=== PATIENT | male | born 1950 | race Caucasian/White ===

== ENCOUNTER 2020-02-12 16:55 | Emergency (ER) | payer OTHER, MEDICARE, SELFPAY ==
[2020-02-12 17:16] VITALS: BP 144/85; PULSE 72; RESP 18; TEMP 36.8; O2SAT 93; BMI 31.9
--- NOTE | 2020-02-12 18:55 | CTR_ITS ---
PROCEDURE INFORMATION: Exam: CT Abdomen And Pelvis With Contrast Exam date and time: 02/12/2020 8:19 PM Age: 69 years old Clinical indication: Abdominal pain; Prior surgery; Surgery type: Stents, gb, appy TECHNIQUE: Imaging protocol: Computed tomography of the abdomen and pelvis with intravenous contrast. Radiation optimization: All CT scans at this facility use at least one of these dose optimization techniques: automated exposure control; mA and/or kV adjustment per patient size (includes targeted exams where dose is matched to clinical indication); or iterative reconstruction. Contrast material: OMNI 300; Contrast volume: 95 ml; Contrast route: IV; COMPARISON: CT Abdomen/[place]vis o [id number] 06/14/2018 8:46 AM RADIATION DOSE METRICS: Total DLP: 1148.77 mGy-cm FINDINGS: Lungs: Scarring and/or atelectasis in the inferior segment of the lingula. Liver: Normal. No mass. Gallbladder and bile ducts: Stable cholecystectomy. Pancreas: Normal. No ductal dilation. Spleen: Normal. No splenomegaly. Adrenals: Normal. No mass. Kidneys and ureters: Stable focal cortical defects in the lower pole left kidney, representing sequela from previous infection or infarction. Stable multiple left renal simple cysts with the largest measuring > 1.0 cm. Stable renal hypodensity measuring < 1.0 cm , too small to further characterize. Stable left parapelvic cyst in the lower pole left kidney. No followup needed. Stomach and bowel: Unremarkable. No obstruction. No mucosal thickening. Appendix: No evidence of appendicitis. Intraperitoneal space: Unremarkable. No free air. No significant fluid collection. Vasculature: Calcification of the abdominal aorta and/or iliac arteries consistent with atherosclerotic vessel disease. One or more calcified pelvic phleboliths. Lymph nodes: Unremarkable. No enlarged lymph nodes. Bladder: Right inguinal hernia which now contains the right anterior urinary bladder which could conceivably create symptoms with some mild inflammation in the fat surrounding the herniated urinary bladder. Reproductive: Unremarkable as visualized. Bones/joints: Unremarkable. No acute fracture. Soft tissues: Stable left inguinal hernia containing fat. CT/CT abdomen pelvis w con* [id number] IMPRESSION: Right inguinal hernia which now contains the right anterior urinary bladder which could conceivably create symptoms with some mild inflammation in the fat surrounding the herniated urinary bladder. Radiation Dose CTDIVOL = (mGy): DLP = 1148.77 (mGy-cm)
[2020-02-12 19:07] LABS: Basophils # 0.1 10^3/uL (0.0-0.1); Basophils % 0.8 %; Eosinophils # 0.2 10^3/uL (0.0-0.8); Eosinophils % 2.2 %; Hematocrit 49.3 % (42.0-52.0); Hemoglobin 17.1 g/dL (11.7-16.6); Lymphocytes # 2.2 10^3/uL (0.8-4.8); Lymphocytes % 27.6 %; Mean Corpuscular HGB Conc 34.7 g/dL (30.0-36.0); Mean Corpuscular Hemoglobin 31.5 pg (28.0-34.0); Mean Platelet Volume 10.1 fL (7.4-10.4); Monocytes # 0.8 10^3/uL (0.2-0.9); Neutrophils # 4.6 10^3/uL (1.8-7.7); Neutrophils % 59.1 %; Nucleated Red Blood Cells % 0 %; Platelet Count 236 10^3/cmm (130-400); Red Blood Count 5.42 10^6/uL (4.1-5.3); Red Cell Distribution Width 13.4 % (12.1-15.1); White Blood Count 7.8 10^3/uL (4.0-10.0)
--- NOTE | 2020-02-12 19:19 | ED_ITS ---
HPI - Abdominal Pain General: Chief Complaint: Abdominal Pain Stated Complaint: abdominal pain and distention Time Seen by Provider: 02/12/20 18:48 History of Present Illness: HPI narrative: Rocael is a nice 69-year-old male who comes in complaining of abdominal pain. He states he has had left upper quadrant and left lower quadrant abdominal pain since Sunday. He states the pain is been constant but waxes and wanes in intensity. It is worse when he gets up and moves. He denies any nausea or vomiting, fevers or chills, dysuria or urinary frequency/urgency, he denies chest pain and shortness of breath and he denies any diarrhea or constipation. He is not had anything similar to this in the past. Patient's not been around anybody that is been ill. He states that nothing really seems to make it worse other than getting up and moving but laying down and resting does help make it better. Associated Symptoms: Denies chills, coffee ground emesis, constipation, GI cramping, diarrhea, dysuria, fever(s), heartburn, hematochezia, hematuria, hematemesis, melena, nausea, syncope and vomiting Review of Systems Const: Denies: fever(s), chills, body aches, fatigue, malaise or diaphoresis Eyes: Denies: change in vision, blurry vision, blind spots or photophobia ENMT: Denies: throat pain, odynophagia, hoarseness, swelling of lips/tongue, ear or mastoid pain, ear discharge, change in hearing or nasal discharge Card: Denies: chest pain, palpitations, irregular heart rhythm, edema, lightheadedness, syncope, pre-syncope, dyspnea on exertion or orthopnea Resp: Denies: dyspnea, productive cough, non-productive cough, wheezing, hemoptysis or chest congestion GI: Reports: abdominal pain; Denies: nausea, vomiting, hematemesis, coffee ground emesis, heartburn, diarrhea, constipation, GI cramping, hematochezia or melena : Denies: flank pain, dysuria, urinary frequency, urinary urgency or hematuria Musc: Denies: neck pain, back pain, extremity pain, extremity swelling, joint pain, joint swelling, joint redness, joint warmth or joint stiffness Skin/Breast: Denies: rash, pruritus, erythema, skin tenderness or jaundice Neuro: Denies: headache(s), numbness in extremities, weakness in extremities, sensory changes, lack of coordination, difficulty walking, dizziness, vertigo, confusion or Slurred speech present Chip/Lymph: Denies: easy bruising, easy bleeding, petechiae, purpura or enlarged lymph nodes All/Imm: Denies: urticaria, throat swelling, tongue swelling, facial swelling or acute wheezing PFSH ED PFSH: Medical History Coronary artery disease Hypertension Surgical History H/O cardiac catheterization S/P appendectomy S/P cholecystectomy Social History Smoking and tobacco status: never smoked Physical Exam Const: COMMON NORMALS: no acute distress, patient oriented x3, no limitations, healthy appearing and well nourished GENERAL APPEARANCE: cooperative, well kempt and well developed HENMT: COMMON NORMALS: normocephalic, atraumatic, hearing grossly normal bilaterally, external ears normal, EAC's normal, Normal external nose present and moist oral mucous membranes HEAD & SCALP: normocephalic and atraumatic NOSE: Normal external nose present and Normal nares present EXTERNAL EAR: Yes external ears normal EXTERNAL AUDITORY CANAL: EAC's normal MOUTH: Normal oral and palatal mucosa present, lip normal and tongue normal Eye: COMMON NORMALS: Equal, round and reactive pupils present, EOMs intact bilaterally, conjunctivae normal and no scleral icterus GENERAL EYE: appearance normal, both eyes and all related structures ALIGNMENT: Yes alignment normal PERIORBITAL: periorbital findings normal EYELID: eyelids normal CONJUNCTIVA: Yes conjunctivae normal SCLERA: sclerae normal PUPIL: Yes Equal, round and reactive pupils present Neck/C-Spine: COMMON NORMALS: full ROM, no lymphadenopathy, supple, no meningeal signs and no JVD GENERAL: Yes normal visual inspection and Yes trachea midline Chest: COMMONS NORMALS: normal inspection of the chest and normal palpation of entire chest wall Resp: COMMON NORMALS: normal respiratory effort, No retractions, No use of accessory muscles and clear to auscultation bilaterally EFFORT & INSPECTION: Yes able to speak in complete sentences and Yes symmetric chest movement AUSCULTATION: clear to auscultation bilaterally, no crackles, no rales, no r honchi and no wheezes Cardio: COMMON NORMALS: no JVD, regular rate, regular rhythm, S1 normal heart sound present, S2 normal heart sound present, No gallops present (Cardio), No clicks present (Cardio), No murmurs present (Cardio) and No rub (Cardio) RATE: regular rate RHYTHM: regular rhythm HEART SOUNDS: S1 normal heart sound present and S2 normal heart sound present GI: COMMON NORMALS: Soft to palpation and No hepatosplenomegaly present PALPATION: Yes Soft to palpation, Yes Tenderness to palpation present (GI) Details: LLQ and LUQ, No Guarding due to palpation present (GI), No Rigid due to palpation, Yes No hepatosplenomegaly present, No Hernia present, No Palpable mass present and No Pulsatile mass present : COMMON NORMALS: Yes no CVA tenderness BLADDER/KIDNEY EXAM: Yes no CVA tenderness Back/Pelvis: COMMON NORMALS: no CVA tenderness, thoracic and lumbar spine normal to inspection, no thoracic nor lumbar tenderness and thoraco-lumbar ROM normal Extremity: COMMON NORMALS: normal to inspection, full ROM, capillary refill normal, no joint enlargement, no clubbing, cyanosis or edema and no calf tenderness Neuro: COMMON NORMALS: patient oriented x3, CN's II-XII intact bilaterally, moves all extremities, no focal motor deficits and no sensory deficits noted MENINGEAL SIGNS: Yes no meningeal signs SPEECH: speech normal Psych: COMMON NORMALS: mental status grossly normal, Normal thought process present, cooperative, normal affect, speech normal and activity/motor behavior normal APPEARANCE: Yes well kempt SPEECH: Yes normal speech THOUGHT PROCESS: Normal thought process present Skin: COMMON NORMALS: no rashes or lesions noted, turgor normal, no jaundice, no petechiae and no mottling GENERAL SKIN EXAM: no rashes or lesions noted and turgor normal Course Vital Signs: Vital signs: Vital Signs Temperature 98.3 F 02/12/20 17:16 Pulse Rate 58 L 02/12/20 21:53 Respiratory Rate 16 02/12/20 21:53 Blood Pressure 141/77 02/12/20 21:53 Pulse Oximetry 95 02/12/20 21:53 MDM - Abdominal Pain MDM Narrative: Medical decision making narrative: Mr. Doip is a nice 69-year-old male who comes in complaining of left-sided abdominal pain for the past 5 days. He now relates that there is a tick bite in the area but I see only mild erythema present. There is no sign of peritonitis on his exam. His lab work and CT scan are unremarkable. I did review the right inguinal hernia with him, this was known by the patient, I reviewed the findings with Dr. Reynaldo gold and he states it needs follow-up with a surgeon but there is no acute urologic issue with this. Patient has no pain in this area. There is no sign of diverticulitis, abdominal aortic aneurysm or otherwise on CT. He agrees to return if his symptoms change or worsen. I reviewed with him discharge instructions and return precautions and he states he understands all this and will follow-up as directed or return if needed. Lab Data: Attestation: I reviewed the patient's lab results. Labs: Lab Results 02/12/20 02/12/20 02/12/20 Range/Units 18:55 19:26 19:32 WBC 7.8 (4.0-10.0) 10^3/ uL RBC 5.42 H (4.1-5.3) 10^6/u L Hgb 17.1 H (11.7-16.6) g/dL Hct 49.3 (42.0-52.0) % MCV 91.0 (80-94) fL MCH 31.5 (28.0-34.0) pg MCHC 34.7 (30.0-36.0) g/dL RDW 13.4 (12.1-15.1) % Plt Count 236 (130-400) 10^3/c mm MPV 10.1 (7.4-10.4) fL Neut % (Auto) 59.1 % Lymph % (Auto) 27.6 % [place] % (Auto) 10.0 % Eos % (Auto) 2.2 % Baso % (Auto) 0.8 % Neut # (Auto) 4.6 (1.8-7.7) 10^3/u L Lymph # (Auto) 2.2 (0.8-4.8) 10^3/u L [place] # (Auto) 0.8 (0.2-0.9) 10^3/u L Eos # (Auto) 0.2 (0.0-0.8) 10^3/u L Baso # (Auto) 0.1 (0.0-0.1) 10^3/u L Nucleated RBC % (a uto) 0 % Nucleated RBCs # 0.0 /100WBC Sodium 141 (136-145) mmol/L Potassium 3.5 (3.5-5.1) mmol/L Chloride 104 (98-107) mmol/L Carbon Dioxide 24 (22-29) mmol/L Anion Gap 16.5 (5-19) BUN 17 (8-23) mg/dL Creatinine 0.7 (0.7-1.2) mg/dL GFR Calculation 112.1 (90-130) mL/min Glucose 95 (65-115) mg/dL Calculated Osmolal ity 288 (285-295) mOsm/k g Calcium 9.0 (8.5-10.5) mg/dL Total Bilirubin 1.2 (0.15-1.2) mg/dL AST 23 (0-40) U/L ALT 19 (0-41) U/L Alkaline Phosphata se 62 (40-130) IU/L Total Protein 6.5 L (6.6-8.7) g/dL Albumin 3.9 (3.5-5.2) g/dL Globulin 2.6 (1.3-4.6) g/dL Lipase (13-60) U/L Urine Color Yellow (Yellow) Urine Appearance Clear (CLEAR) Urine pH 5 (5-7) Ur Specific Gravit y 1.025 (1.005-1.030) Urine Protein Neg (Negative) Urine Glucose (UA) Norm (Normal) Urine Ketones Negative (Negative) Urine Blood Trace H (Negative) Urine Nitrate Negative (Negative) Urine Bilirubin Neg (NEGATIVE) Urine Urobilinogen Norm (Negative) mg/dL Ur Leukocyte Keila ase Negative (Negative) Urine RBC 5-10 H (0-2) /hpf Urine WBC None (0-5) /hpf Ur Squamous Epith Cells 0-4 H (0-5) Ur Transition Epit h Cell None /hpf Ur Renal Epithelia l Cell N /hpf Urine Bacteria Trace (NONE) Urine Mucus 3+ 05/28/20 Range/Units 19:32 WBC (4.0-10.0) 10^3/ uL RBC (4.1-5.3) 10^6/u L Hgb (11.7-16.6) g/dL Hct (42.0-52.0) % MCV (80-94) fL MCH (28.0-34.0) pg MCHC (30.0-36.0) g/dL RDW (12.1-15.1) % Plt Count (130-400) 10^3/c mm MPV (7.4-10.4) fL Neut % (Auto) % Lymph % (Auto) % [place] % (Auto) % Eos % (Auto) % Baso % (Auto) % Neut # (Auto) (1.8-7.7) 10^3/u L Lymph # (Auto) (0.8-4.8) 10^3/u L [place] # (Auto) (0.2-0.9) 10^3/u L Eos # (Auto) (0.0-0.8) 10^3/u L Baso # (Auto) (0.0-0.1) 10^3/u L Nucleated RBC % (a uto) % Nucleated RBCs # /100WBC Sodium (136-145) mmol/L Potassium (3.5-5.1) mmol/L Chloride (98-107) mmol/L Carbon Dioxide (22-29) mmol/L Anion Gap (5-19) BUN (8-23) mg/dL Creatinine (0.7-1.2) mg/dL GFR Calculation (90-130) mL/min Glucose (65-115) mg/dL Calculated Osmolal ity (285-295) mOsm/k g Calcium (8.5-10.5) mg/dL Total Bilirubin (0.15-1.2) mg/dL AST (0-40) U/L ALT (0-41) U/L Alkaline Phosphata se (40-130) IU/L Total Protein (6.6-8.7) g/dL Albumin (3.5-5.2) g/dL Globulin (1.3-4.6) g/dL Lipase 23 (13-60) U/L Urine Color (Yellow) Urine Appearance (CLEAR) Urine pH (5-7) Ur Specific Gravit y (1.005-1.030) Urine Protein (Negative) Urine Glucose (UA) (Normal) Urine Ketones (Negative) Urine Blood (Negative) Urine Nitrate (Negative) Urine Bilirubin (NEGATIVE) Urine Urobilinogen (Negative) mg/dL Ur Leukocyte Keila ase (Negative) Urine RBC (0-2) /hpf Urine WBC (0-5) /hpf Ur Squamous Epith Cells (0-5) Ur Transition Epit h Cell /hpf Ur Renal Epithelia l Cell /hpf Urine Bacteria (NONE) Urine Mucus Imaging Data ^: CT Abd/Pel: Radiologist's impression: [address] [address] [address] Scan Report Signed Patient: Rocael Diop Unit #: [id number] : 1950 Age/Sex: 69 / M ADM Date: 02/12/20 Loc: ER Room/Bed: Attending Dr: Ordering Provider/Ordering MD: Wanda العلي DO Date of Service: 02/12/20 Procedure(s): CT abdomen pelvis w con* [id number] Accession Number(s): [id number] Report Number: [id number] PROCEDURE INFORMATION: Exam: CT Abdomen And Pelvis With Contrast Exam date and time: 02/12/2020 8:19 PM Age: 69 years old Clinical indication: Abdominal pain; Prior surgery; Surgery type: Stents, gb, appy TECHNIQUE: Imaging protocol: Computed tomography of the abdomen and pelvis with intravenous contrast. Radiation optimization: All CT scans at this facility use at least one of these dose optimization techniques: automated exposure control; mA and/or kV adjustment per patient size (includes targeted exams where dose is matched to clinical indication); or iterative reconstruction. Contrast material: OMNI 300; Contrast volume: 95 ml; Contrast route: IV; COMPARISON: CT Abdomen/Pelvis wwo [id number] 06/14/2018 8:46 AM RADIATION DOSE METRICS: Total DLP: 1148.77 mGy-cm FINDINGS: Lungs: Scarring and/or atelectasis in the inferior segment of the lingula. Liver: Normal. No mass. Gallbladder and bile ducts: Stable cholecystectomy. Pancreas: Normal. No ductal dilation. Spleen: Normal. No splenomegaly. Adrenals: Normal. No mass. Kidneys and ureters: Stable focal cortical defects in the lower pole left kidney, representing sequela from previous infection or infarction. Stable multiple left renal simple cysts with the largest measuring > 1.0 cm. Stable renal hypodensity measuring < 1.0 cm , too small to further characterize. Stable left parapelvic cyst in the lower pole left kidney. No followup needed. Stomach and bowel: Unremarkable. No obstruction. No mucosal thickening. Appendix: No evidence of appendicitis. Intraperitoneal space: Unremarkable. No free air. No significant fluid collection. Vasculature: Calcification of the abdominal aorta and/or iliac arteries consistent with atherosclerotic vessel disease. One or more calcified pelvic phleboliths. Lymph nodes: Unremarkable. No enlarged lymph nodes. Bladder: Right inguinal hernia which now contains the right anterior urinary bladder which could conceivably create symptoms with some mild inflammation in the fat surrounding the herniated urinary bladder. Reproductive: Unremarkable as visualized. Bones/joints: Unremarkable. No acute fracture. Soft tissues: Stable left inguinal hernia containing fat. CT/CT abdomen pelvis w con* [id number] IMPRESSION: Right inguinal hernia which now contains the right anterior urinary bladder which could conceivably create symptoms with some mild inflammation in the fat surrounding the herniated urinary bladder. Radiation Dose CTDIVOL = (mGy): DLP = 1148.77 (mGy-cm) Dictated By: Dominic Lazar MD Signed By: Dominic Lazar MD Signed Date/Time: 02/12/202054 DD/ 52 Discharge Plan Discharge Patient Disposition: Home, Self-Care Clinical Impression: Abdominal pain Qualifiers: Abdominal location: left lower quadrant Qualified Code(s): R10.32 - Left lower quadrant pain Tick bite of abdomen Qualifiers: Encounter type: initial encounter Qualified Code(s): S30.861A - Insect bite (nonvenomous) of abdominal wall, initial encounter Condition: Stable Prescriptions: New doxycycline hyclate 100 mg tablet 100 mg PO BID 14 Days Qty: 28 RF: 0 Zofran 4 mg tablet 4 mg PO QID PRN (Reason: nausea and vomiting) Qty: 20 RF: 0 No Action losartan 50 mg tablet 50 mg PO DAILY RF: 0 sotalol 80 mg tablet 80 mg PO BID RF: 0 magnesium 250 mg Tablet 250 mg PO DAILY RF: 0 pravastatin 20 mg tablet 20 mg PO BEDTIME RF: 0 hydrochlorothiazide 25 mg tablet 12.5 mg PO DAILY RF: 0 L-Lysine 500 mg Tablet 500 mg PO BID RF: 0 potassium gluconate 595 mg (99 mg) Tablet 595 mg PO DAILY RF: 0 Xarelto 20 mg tablet 20 mg PO DAILY RF: 0 Vitamin C 1 tab PO BID RF: 0 Discharge Orders: Discharge Order (Routine); Ordered 02/12/20 Ordered By: Wanda العلي Referrals: Khris Hyde [Primary Care Provider] - 1-3 days Discharge Diet: Advance as tolerated and Clear Liquid Discharge Activity: Increase activity as tolerated Patient Instructions: Tick Bite (ED), Abdominal Pain (ED) Activity Restrictions/Additional Instructions: Please return to the ER immediately for any of the signs or symptoms listed on your discharge instruction sheets, worsening/changing of your symptoms, you are not getting better as quickly as expected, or for ANY other cause or concerns. Follow a clear liquid diet and advance as tolerated. Be certain to follow-up with your doctor to be certain that your urinalysis clears. Return to the ER for fever, increased pain, vomiting, or for any other cause for concern. Discharge Date/Time: 02/12/20 21:54 Coding Level of Care Code ED Brewery Representative for Abhinav Fwd Exam Comprehensive
[2020-02-12 19:21] VITALS: BP 129/83; PULSE 62; RESP 18; O2SAT 95
[2020-02-12] MEDS: ondansetron 2 mg/ML SDV 2 mL 4 MG IVP ×2 (19:23→21:35)
[2020-02-12] MEDS: lactated ringers 1,000 ML 150 ML IV (19:24)
[2020-02-12 20:02] LABS: Urine Appearance Clear (CLEAR); Urine Color Yellow (Yellow); pH Urine 5 (5-7)
[2020-02-12 20:03] LABS: Add Urine Culture? No; Bacteria Urine TRACE; Bilirubin Urine Neg (NEGATIVE); Blood Urine Trace (Negative); Glucose Urine UA Norm (Normal); Ketones Urine Negative (Negative); Leukocyte Esterase Urine Negative (Negative); Mucus Urine 3+; Nitrate Urine Negative (Negative); Protein Urine Neg (Negative); Renal Epithelial Cells Urine N /hpf; Specific Gravity, Urine 1.025 (1.005-1.030); Squamous Epithelial Cell Urine 0-4 (0-5); Urobilinogen Urine Norm (Negative)
[2020-02-12 20:05] LABS: Alanine Aminotransferase 19 U/L (0-41); Albumin Level 3.9 g/dL (3.5-5.2); Alkaline Phosphatase 62 IU/L (40-130); Anion Gap 16.5 (5-19); Aspartate Amino Transferase 23 U/L (0-40); Blood Urea Nitrogen 17 mg/dL (8-23); Carbon Dioxide 24 mmol/L (22-29); Chloride 104 mmol/L (98-107); Globulin 2.6 g/dL (1.3-4.6); Glomerular Filtration Rate 112.1 mL/min (90-130); Glucose 95 mg/dL (65-115); Lipase 23 U/L (13-60); Osmolality Calculated 288 mOsm/kg (285-295); Potassium 3.5 mmol/L (3.5-5.1); Sodium 141 mmol/L (136-145); Total Bilirubin 1.2 mg/dL (0.15-1.2); Total Protein 6.5 g/dL (6.6-8.7)
[2020-02-12] MEDS: iohexol 300 mg/mL 100 mL Btl IV (20:33)
[2020-02-12 20:59] VITALS: BP 129/83; PULSE 88; RESP 16; O2SAT 96
[2020-02-12] MEDS: HYDROcodone-acetaminophen 5-325 mg Tablet 1 TAB PO (21:33)
[2020-02-12] MEDS: doxycycline 100 mg Tablet 200 MG PO (21:33)
[2020-02-12 21:53] VITALS: BP 141/77; PULSE 58; RESP 16; O2SAT 95
== END 2020-02-12 21:54 | disposition home or self-care (01) ==
PROVIDERS: Emergency Provider Emergency Medicine; PCP Internal Medicine
DX: R10.32 Left lower quadrant pain (principal); S30.861A Insect bite (nonvenomous) of abdominal wall, initial encounter; W57.XXXA Bitten or stung by nonvenomous insect and other nonvenomous arthropods, initial encounter; I25.10 Atherosclerotic heart disease of native coronary artery without angina pectoris; I10 Essential (primary) hypertension
CPT/HCPCS: 12345; 74177; 80053; 81001; 83690; 85025; 96365; 96366; 96375; 96376; 99283; J2405; Q9967

== ENCOUNTER 2020-08-18 17:15 | Emergency (ER) | payer OTHER, MEDICARE, SELFPAY ==
[2020-08-18 17:20] VITALS: PULSE 72; RESP 20; TEMP 36.5; O2SAT 96; BMI 30.4
--- NOTE | 2020-08-18 17:27 | XR_ITS ---
WS: [id number] Left shoulder, 3 views, 08/18/2020 Clinical Data: fall Comparison: None. Findings: No fractures or dislocations are seen. The AC joint is normal. The adjacent left clavicle, left scapu la and ribs are normal. The soft tissues are unremarkable. XR/XR shoulder LT min 2V* [id number] Impression: Negative left shoulder.
[2020-08-18] MEDS: TRAMadol 50 mg Tablet 100 MG PO (18:29)
--- NOTE | 2020-08-18 19:53 | ED_ITS ---
HPI - Extremity Problem General: Chief complaint: Extremity Injury, Upper Stated complaint: FALL FROM 8' LADDER, L SHOULDER INJURY Time Seen by Provider: 08/18/20 18:04 History of Present Illness: HPI Narrative: Patient fell off a ladder approximately from 7 foot line the left shoulder now complains about left shoulder pain this happened earlier in the day. Denies any other injuries patient does take daily blood thinner MD Complaint: joint pain Onset (ago): hour(s) Pain Consistency: constant Location: left and upper extremity Quality: aching Radiation: none Relieving factors: immobilization Exacerbating factors: range of motion Associated symptoms: Reports no associated symptoms; Deny chest pain, fever(s) or rash Review of Systems Const: Denies: fever(s), chills or body aches Eyes: Denies: change in vision or blurry vision ENMT: Denies: throat pain or nasal congestion Card: Denies: chest pain or dyspnea on exertion Resp: Denies: dyspnea, productive cough or non-productive cough GI: Denies: abdominal pain, nausea or vomiting : Denies: difficulty urinating Musc: Reports: joint pain (Right shoulder); Denies: extremity pain Skin/Breast: Denies: rash Neuro: Denies: headache(s) Psych: Denies: anxiety or depression Chip/Lymph: Denies: easy bruising PFSH ED PFSH: Medical History (Updated 08/18/20 @ 18:14 by VICTOR MANUEL Moreland) Coronary artery disease Hypertension Surgical History H/O cardiac catheterization S/P appendectomy S/P cholecystectomy Social History Smoking and tobacco status: never smoked Physical Exam Const: COMMON NORMALS: no acute distress, average body habitus and patient oriented x3 HENMT: COMMON NORMALS: normocephalic HEAD & SCALP: normal to inspection and normocephalic FACE & SINUS: normal facial exam Eye: COMMON NORMALS: conjunctivae normal GENERAL EYE: appearance normal, both eyes and all related structures CONJUNCTIVA: Yes conjunctivae normal Neck/C-Spine: COMMON NORMALS: no JVD Chest: COMMONS NORMALS: normal inspection of the chest Resp: COMMON NORMALS: normal respiratory effort and clear to auscultation bilaterally AUSCULTATION: clear to auscultation bilaterally Cardio: COMMON NORMALS: no JVD, regular rate and regular rhythm RATE: regular rate RHYTHM: regular rhythm GI: COMMON NORMALS: Normal to inspection, nondistended, normoactive bowel sounds present Extremity: COMMON NORMALS: normal to inspection RIGHT UPPER EXTREMITY: Yes shoulder joint (Tenderness with range of motion tenderness to the anterior aspect the shoul) Neuro: COMMON NORMALS: patient oriented x3 Course Vital Signs: Vital signs: Vital Signs Temperature 97.7 F 08/18/20 17:20 Pulse Rate 72 08/18/20 17:20 Respiratory Rate 20 H 08/18/20 17:20 Pulse Oximetry 96 08/18/20 17:20 MDM - Extremity (Nontraumatic) MDM Narrative: Medical decision making narrative: Reviewed x-ray with Dr. Anand patient follow-up family medical provider if no significant provement. Discharge Plan Discharge Patient Disposition: Home Clinical Impression: Contusion of left shoulder Qualifiers: Encounter type: initial encounter Qualified Code(s): S40.012A - Contusion of left shoulder, initial encounter Condition: Stable Prescriptions: New tramadol 50 mg tablet 50 mg PO TID PRN (Reason: pain) Qty: 14 RF: 0 No Action losartan 50 mg tablet 50 mg PO DAILY RF: 0 sotalol 80 mg tablet 80 mg PO BID RF: 0 magnesium 250 mg Tablet 250 mg PO DAILY RF: 0 pravastatin 20 mg tablet 20 mg PO BEDTIME RF: 0 hydrochlorothiazide 25 mg tablet 12.5 mg PO DAILY RF: 0 L-Lysine 500 mg Tablet 500 mg PO BID RF: 0 potassium gluconate 595 mg (99 mg) Tablet 595 mg PO DAILY RF: 0 Xarelto 20 mg tablet 20 mg PO DAILY RF: 0 Vitamin C 1 tab PO BID RF: 0 Zofran 4 mg tablet 4 mg PO QID PRN (Reason: nausea and vomiting) Qty: 20 RF: 0 Discharge Orders: Discharge ED (Routine); Ordered 08/18/20 Ordered By: Ramses Dunham Referrals: Khris Hyde [Primary Care Provider] - Discharge Diet: Usual diet Discharge Activity: Resume usual activity Patient Instructions: Contusion in Adults (ED) Activity Restrictions/Additional Instructions: follow up with primnary care provider oif no improvement, use med as directed, ice to area, weara sling as needed Coding Level of Care Code ED Aesthetician for Chg Fwd
== END 2020-08-18 18:33 | disposition home or self-care (01) ==
PROVIDERS: Emergency Provider Nurse Practitioner Family; PCP Internal Medicine
DX: S40.012A Contusion of left shoulder, initial encounter (principal); W11.XXXA Fall on and from ladder, initial encounter
CPT/HCPCS: 12345; 73030; 99281; 99283

== ENCOUNTER 2020-08-28 08:50 | Emergency (ER) | payer OTHER, MEDICARE, SELFPAY ==
[2020-08-28 08:53] VITALS: BP 198/111; PULSE 68; RESP 18; TEMP 36.3; O2SAT 96; BMI 30.4
--- NOTE | 2020-08-28 09:08 | USR_ITS ---
PROCEDURE INFORMATION: Exam: US Duplex Left Upper Extremity Veins, Limited Exam date and time: 08/28/2020 9:55 AM Age: 70 years old Clinical indication: Pain; Arm, upper; Left; Additional info: Possible dvt TECHNIQUE: Imaging protocol: Real-time Duplex ultrasound of the Left Upper Extremity with 2-D fleming scale, color Doppler flow and spectral waveform analysis with image documentation. Limited exam focused on the left upper extremity veins. COMPARISON: No relevant prior studies available. FINDINGS: Left deep veins: No deep venous thrombosis in the visualized left internal jugular, subclavian, axillary, or brachial veins. Left superficial veins: Visualized cephalic and basilic veins are patent without thrombus. Soft tissues: Unremarkable. US/[place] [id number] IMPRESSION: No deep venous thrombosis in the visualized left upper extremity.
--- NOTE | 2020-08-28 09:08 | XRR_ITS ---
PROCEDURE INFORMATION: Exam: XR Left Humerus Exam date and time: 08/28/2020 9:32 AM Age: 70 years old Clinical indication: Pain and injury or trauma; Fall; Blunt trauma (contusions or hematomas); Arm, upper; Left; Upper arm; Injury date: 08/18 TECHNIQUE: Imaging protocol: XR Left humerus Views: 2 or more views. COMPARISON: No relevant prior studies available. FINDINGS: Bones/joints: No acute bony injury or malalignment in the visualized left humerus. If localized injury in the shoulder or elbow is of clinical concern, dedicated radiographs would be recommended. Soft tissues: No radiopaque foreign body. XR/[place] [id number] IMPRESSION: No acute bony injury or malalignment in the visualized left humerus.
--- NOTE | 2020-08-28 09:08 | XRR_ITS ---
PROCEDURE INFORMATION: Exam: XR Left Shoulder Exam date and time: 08/28/2020 9:32 AM Age: 70 years old Clinical indication: Injury or trauma; Fall; Blunt trauma (contusions or hematomas); Shoulder; Left; Injury date: 08/18 TECHNIQUE: Imaging protocol: XR Left shoulder. Views: 2 or more views. COMPARISON: CR XR shoulder LT min 2V* [id number] 08/18/2020 5:49 PM FINDINGS: Bones/joints: No acute bony injury or malalignment in the left shoulder. Soft tissues: No radiopaque foreign body. XR/XR shoulder LT min 2V* [id number] IMPRESSION: No acute bony injury or malalignment in the left shoulder.
[2020-08-28 09:32] LABS: Basophils # 0.1 10^3/uL (0.0-0.1); Basophils % 1.2 %; Eosinophils # 0.4 10^3/uL (0.0-0.8); Eosinophils % 5.6 %; Hematocrit 44.9 % (42.0-52.0); Hemoglobin 15.3 g/dL (11.7-16.6); Lymphocytes # 1.7 10^3/uL (0.8-4.8); Lymphocytes % 24.7 %; Mean Corpuscular HGB Conc 34.1 g/dL (30.0-36.0); Mean Corpuscular Hemoglobin 31.1 pg (28.0-34.0); Mean Corpuscular Volume 91.3 fL (80-94); Mean Platelet Volume 10.2 fL (7.4-10.4); Monocytes # 0.5 10^3/uL (0.2-0.9); Monocytes % 7.2 %; Neutrophils # 4.18 10^3/uL (1.8-7.7); Nucleated Red Blood Cells % 0 %; Platelet Count 313 10^3/cmm (130-400); Red Blood Count 4.92 10^6/uL (4.1-5.3); Red Cell Distribution Width 13.2 % (12.1-15.1); White Blood Count 6.8 10^3/uL (4.0-10.0)
[2020-08-28 09:49] LABS: INR 1.71 (0.8-1.2); Partial Thromboplastin Time 37.9 SECONDS (23.9-36.7)
[2020-08-28 11:01] VITALS: BP 190/101; PULSE 64; RESP 18; O2SAT 96
--- NOTE | 2020-08-28 16:42 | W.ED.EXTPRO ---
HPI - Extremity Problem General: Chief complaint: Extremity Problem,Nontraumatic Stated complaint: Left Shoulder Pain/Bruising, Here recently Time Seen by Provider: 08/28/20 08:57 Source: patient Mode of arrival: ambulatory Limitations: no limitations History of Present Illness: HPI Narrative: 70 yo male patient presents to ER with worsening of bruising from a fall about a week ago. Pt states he is on blood thinners and noticed the bruising has gone from his shoulder and now going down his arm. Pt denies any numbness or tingling pt denies and loss of sensation. Pt does complain of pain but states pain does seem to be improving. pt states he was seen in er at time of fall and had negative xrays of shoulder and arm. pt denies fever. Pt denies chest pain or SOB. Associated symptoms: Deny chest pain, fever(s) or rash Review of Systems Const: Denies: fever(s), chills or body aches Eyes: Denies: change in vision or blurry vision ENMT: Denies: throat pain, mouth pain or dental pain Card: Denies: chest pain, palpitations, irregular heart rhythm, edema, swelling of feet/ankles, lightheadedness, syncope, pre-syncope, dyspnea on exertion, orthopnea, leg pain with exertion or acrocyanosis Resp: Denies: dyspnea, productive cough, non-productive cough, wheezing, stridor or pain on inspiration GI: Denies: abdominal pain, nausea, vomiting, diarrhea or constipation : Denies: flank pain, difficulty urinating, dysuria or urinary frequency Musc: Reports: extremity pain, extremity swelling and limited range of motion; Denies: neck pain, back pain, joint pain, joint swelling, joint redness, joint warmth, joint stiffness, muscle cramps, muscle weakness, decrease in muscle mass, loss of height or deformity Skin/Breast: Denies: rash, pruritus or erythema Neuro: Denies: headache(s), numbness in extremities, weakness in extremities, sensory changes, lack of coordination, difficulty walking, dizziness or vertigo Psych: Denies: suicidal ideation or homicidal ideation [facility] ED PFSH: Medical History Coronary artery disease Hypertension Surgical History H/O cardiac catheterization S/P appendectomy S/P cholecystectomy Social History Smoking and tobacco status: never smoked Physical Exam Const: COMMON NORMALS: no acute distress, average body habitus, patient oriented x3, no limitations, healthy appearing, alert and well nourished HENMT: COMMON NORMALS: normocephalic and atraumatic HEAD & SCALP: normocephalic and atraumatic Eye: COMMON NORMALS: Equal, round and reactive pupils present, EOMs intact bilaterally and conjunctivae normal CONJUNCTIVA: Yes conjunctivae normal PUPIL: Yes Equal, round and reactive pupils present Neck/C-Spine: COMMON NORMALS: full ROM, no lymphadenopathy, supple, no meningeal signs and no JVD Chest: COMMONS NORMALS: normal inspection of the chest and normal palpation of entire chest wall Resp: COMMON NORMALS: normal respiratory effort, No retractions, No use of accessory muscles and clear to auscultation bilaterally AUSCULTATION: clear to auscultation bilaterally Cardio: COMMON NORMALS: no JVD, regular rate and regular rhythm RATE: regular rate RHYTHM: regular rhythm GI: COMMON NORMALS: Normal to inspection, nondistended, normoactive bowel sounds present, Soft to palpation, non-tender, No hepatosplenomegaly present, no masses and no bruits PALPATION: Yes Soft to palpation and Yes No hepatosplenomegaly present : COMMON NORMALS: Yes no CVA tenderness BLADDER/KIDNEY EXAM: Yes no CVA tenderness Back/Pelvis: COMMON NORMALS: no CVA tenderness, thoracic and lumbar spine normal to inspection, no thoracic nor lumbar tenderness and thoraco-lumbar ROM normal Extremity: COMMON NORMALS: capillary refill normal, no joint enlargement, no clubbing, cyanosis or edema, no calf tenderness and no pedal edema LEFT UPPER EXTREMITY: Yes shoulder joint and Yes upper arm Neuro: COMMON NORMALS: patient oriented x3 SENSORIUM/ORIENTATION: Yes alert MENINGEAL SIGNS: Yes no meningeal signs Skin: NARRATIVE SKIN EXAM: bruising purple, yellow color as in images below SKIN IMAGES (MALE): 1. varying colors of bruising 2. varying colors of bruising Course Vital Signs: Vital signs: Vital Signs Temperature 97.3 F L 08/28/20 08:53 Pulse Rate 64 08/28/20 11:01 Respiratory Rate 18 08/28/20 11:01 Blood Pressure 190/101 08/28/20 11:01 Pulse Oximetry 96 08/28/20 11:01 MDM - Extremity (Nontraumatic) MDM Narrative: Medical decision making narrative: Pt is well appearing non toxic and in no acute distress. 70 yo male patient presents to ER with worsening of bruising from a fall about a week ago. Pt states he is on blood thinners and noticed the bruising has gone from his shoulder and now going down his arm. Pt denies any numbness or tingling pt denies and loss of sensation. Pt does complain of pain but states pain does seem to be improving. pt states he was seen in er at time of fall and had negative xrays of shoulder and arm. pt denies fever. Pt denies chest pain or SOB. xrays are negative for fractures or dislocation. I did order US to r/o DVT> Us was negative for any DVT> Pt is NVI distal to injury. I believe the bruising is secondary to blood thinner and that gravity has contributed to the spreading of the bruising. I do not feel any further testing is warranted I did talk with patient about return precautions such as chest pain or SOB to return to ER> I discussed home care and follow up with patient Differential Diagnosis: Extremity Problem Differential Diagnosis: Likely deep venous thrombosis of upper extremity (fracture, dislocation) Lab Data: Labs: Lab Results 08/28/20 08/28/20 Range/Units 09:19 09:19 WBC 6.8 (4.0-10.0) 10^3/ uL RBC 4.92 (4.1-5.3) 10^6/u L Hgb 15.3 (11.7-16.6) g/dL Hct 44.9 (42.0-52.0) % MCV 91.3 (80-94) fL MCH 31.1 (28.0-34.0) pg MCHC 34.1 (30.0-36.0) g/dL RDW 13.2 (12.1-15.1) % Plt Count 313 (130-400) 10^3/c mm MPV 10.2 (7.4-10.4) fL Neut % (Auto) 61.0 % Lymph % (Auto) 24.7 % [place] % (Auto) 7.2 % Eos % (Auto) 5.6 % Baso % (Auto) 1.2 % Neut # (Auto) 4.18 (1.8-7.7) 10^3/u L Lymph # (Auto) 1.7 (0.8-4.8) 10^3/u L [place] # (Auto) 0.5 (0.2-0.9) 10^3/u L Eos # (Auto) 0.4 (0.0-0.8) 10^3/u L Baso # (Auto) 0.1 (0.0-0.1) 10^3/u L Nucleated RBC % (a uto) 0 % Nucleated RBCs # 0.0 /100WBC PT 20.70 H (12.1-14.9) SECO NDS INR 1.71 H (0.8-1.2) APTT 37.9 H (23.9-36.7) SECO NDS Discharge Plan Discharge Patient Disposition: Home Clinical Impression: Bruising Condition: Stable Prescriptions: No Action tramadol 50 mg tablet 50 mg PO TID PRN (Reason: pain) Qty: 14 RF: 0 losartan 50 mg tablet 50 mg PO DAILY RF: 0 sotalol 80 mg tablet 80 mg PO BID RF: 0 magnesium 250 mg Tablet 250 mg PO DAILY RF: 0 pravastatin 20 mg tablet 20 mg PO BEDTIME RF: 0 hydrochlorothiazide 25 mg tablet 12.5 mg PO DAILY RF: 0 L-Lysine 500 mg Tablet 500 mg PO BID RF: 0 potassium gluconate 595 mg (99 mg) Tablet 595 mg PO DAILY RF: 0 Xarelto 20 mg tablet 20 mg PO DAILY RF: 0 Vitamin C 1 tab PO BID RF: 0 Zofran 4 mg tablet 4 mg PO QID PRN (Reason: nausea and vomiting) Qty: 20 RF: 0 Discharge Orders: Discharge ED (Routine); Ordered 08/28/20 Ordered By: Mary Maldonado Referrals: Khris Hyde [Primary Care Provider] - Discharge Diet: Advance as tolerated Discharge Activity: Resume usual activity Activity Restrictions/Additional Instructions: Pleae return to ER with any worsening of symptoms or chest pain or shortness of breath Please follow up with PCP Coding Level of Care Code ED Patching Machine Operator for Abhinav Marsh
== END 2020-08-28 11:01 | disposition home or self-care (01) ==
PROVIDERS: Emergency Provider Registered Nurse; PCP Internal Medicine
DX: S40.022A Contusion of left upper arm, initial encounter (principal); W19.XXXA Unspecified fall, initial encounter; I25.10 Atherosclerotic heart disease of native coronary artery without angina pectoris; I10 Essential (primary) hypertension; M79.602 Pain in left arm
CPT/HCPCS: 12345; 73030; 73060; 85025; 85610; 85730; 93971; 99281; 99283

== ENCOUNTER → 2023-01-23 12:46 | Outpatient (BNVA) | payer OTHER, SELFPAY | PROVIDERS: PCP Internal Medicine; Referring Provider Family Medicine; Visit Provider Orthopaedic Surgery | DX: M51.36 Other intervertebral disc degeneration, lumbar region (principal); M47.816 Spondylosis without myelopathy or radiculopathy, lumbar region | CPT/HCPCS: 72110; 99204 ==

== ENCOUNTER → 2023-02-08 14:29 | Outpatient (BNVA) | payer OTHER, SELFPAY | PROVIDERS: PCP Internal Medicine; Visit Provider Internal Medicine | DX: R07.9 Chest pain, unspecified (principal); I25.10 Atherosclerotic heart disease of native coronary artery without angina pectoris; I10 Essential (primary) hypertension; I48.91 Unspecified atrial fibrillation; Z79.899 Other long term (current) drug therapy; Z87.891 Personal history of nicotine dependence; Z79.01 Long term (current) use of anticoagulants; Z95.5 Presence of coronary angioplasty implant and graft; R94.31 Abnormal electrocardiogram [ECG] [EKG]; I27.20 Pulmonary hypertension, unspecified | CPT/HCPCS: 93005; 99204 ==

== ENCOUNTER 2023-07-10 21:43 | Emergency (ER) | payer OTHER, SELFPAY ==
--- NOTE | 2023-07-10 21:46 | ECG_ITS ---
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 Measurements Intervals [place] Rate: 66 P: -1 TN: 192 QRS: -14 QRSD: 90 T: 0 QT: 385 QTc: 405 Interpretive Statements SINUS RHYTHM Compared to ECG 02/08/2023 14:35:39 No significant changes Electronically Signed On 07-11-2023 8:02:09 CDT by Mk Doherty M.D. [email or web address] by [id number] f
[2023-07-10 21:50] VITALS: BP 199/121; PULSE 68; RESP 12; TEMP 36.4; O2SAT 98; BMI 28.8
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
[2023-07-10 22:24] LABS: Basophils # 0.1 10^3/uL (0.0-0.1); Basophils % 0.7 %; Eosinophils # 0.1 10^3/uL (0.0-0.8); Eosinophils % 1.6 %; Hematocrit 47.3 % (37-53); Lymphocytes # 1.7 10^3/uL (0.8-4.8); Lymphocytes % 24.3 %; Mean Corpuscular HGB Conc 34.7 g/dL (30-55); Mean Corpuscular Hemoglobin 31.3 pg (27-33); Mean Corpuscular Volume 90.3 fl (82-101); Mean Platelet Volume 9.7 fL (7.4-10.4); Monocytes # 0.5 10^3/uL (0.2-0.9); Monocytes % 6.9 %; Neutrophils # 4.69 10^3/uL (1.8-7.7); Neutrophils % 66.2 %; Nucleated Red Blood Cells % 0 %; Platelet Count 222 10^3/cmm (157-399); Red Blood Count 5.24 10^6/uL (3.85-5.65); Red Cell Distribution Width 13.2 % (12.1-15.1); White Blood Count 7.08 10^3/uL (3.29-11.43)
[2023-07-10 22:25] VITALS: BP 190/108; PULSE 66; RESP 19; O2SAT 94
[2023-07-10 22:43] LABS: Alanine Aminotransferase 20 U/L (0-41); Albumin Level 4.3 g/dL (3.5-5.2); Alkaline Phosphatase 73 U/L (40-130); Anion Gap 15.8 (5-19); Aspartate Amino Transferase 23 U/L (0-40); Blood Urea Nitrogen 16 mg/dL (8-23); Calcium 9.2 mg/dL (8.5-10.5); Carbon Dioxide 22 mmol/L (22-29); Chloride 106 mmol/L (98-107); Creatinine Clr Calc Pharmacy 89.1475; Globulin 2.7 g/dL (1.3-4.6); Glucose 112 mg/dL (65-115); Osmolality Calculated 292 mOsm/kg (285-295); Potassium 3.8 mmol/L (3.5-5.1); Sodium 140 mmol/L (136-145); Total Bilirubin 0.8 mg/dL (0.15-1.2)
[2023-07-10 22:44] LABS: Troponin(5th) Baseline 10 ng/L (0-15)
[2023-07-10 23:18] VITALS: BP 139/100; PULSE 67; RESP 18; TEMP 36.4; O2SAT 94
--- NOTE | 2023-07-12 11:00 | PC.SOCIAL ---
ORTHO RFS [facility] referral.
== END 2023-07-10 23:19 | disposition home or self-care (01) ==
PROVIDERS: Emergency Provider Nurse Practitioner Family
DX: R07.89 Other chest pain (principal); M25.512 Pain in left shoulder; I25.10 Atherosclerotic heart disease of native coronary artery without angina pectoris; I10 Essential (primary) hypertension; Z87.891 Personal history of nicotine dependence; Y04.2XXA Assault by strike against or bumped into by another person, initial encounter
CPT/HCPCS: 71101; 73030; 80053; 84484; 85025; 93005; 99285

== ENCOUNTER → 2023-08-06 10:54 | Outpatient (BNVA) | payer OTHER, SELFPAY | PROVIDERS: Visit Provider Specialist | DX: S49.92XA Unspecified injury of left shoulder and upper arm, initial encounter; M75.102 Unspecified rotator cuff tear or rupture of left shoulder, not specified as traumatic; M12.812 Other specific arthropathies, not elsewhere classified, left shoulder; W11.XXXA Fall on and from ladder, initial encounter | CPT/HCPCS: 20610; 73030; 99204; J1100; J2795; J3301 ==

== ENCOUNTER → 2023-10-02 14:11 | Outpatient (BNVA) | payer OTHER, SELFPAY | PROVIDERS: PCP Family Medicine; Visit Provider Internal Medicine | DX: I25.10 Atherosclerotic heart disease of native coronary artery without angina pectoris (principal); I10 Essential (primary) hypertension; I48.91 Unspecified atrial fibrillation; Z87.891 Personal history of nicotine dependence | CPT/HCPCS: 99214 ==

== ENCOUNTER → 2023-12-28 10:09 | Outpatient (BNVA) | payer OTHER, SELFPAY | PROVIDERS: PCP Family Medicine; Visit Provider Specialist | DX: M75.102 Unspecified rotator cuff tear or rupture of left shoulder, not specified as traumatic (principal); M12.812 Other specific arthropathies, not elsewhere classified, left shoulder | CPT/HCPCS: 20610; J1100; J2795; J3301 ==

== ENCOUNTER → 2024-04-18 10:54 | Outpatient (BNVA) | payer OTHER, SELFPAY | PROVIDERS: PCP Family Medicine; Visit Provider Specialist | DX: M75.102 Unspecified rotator cuff tear or rupture of left shoulder, not specified as traumatic (principal); M12.812 Other specific arthropathies, not elsewhere classified, left shoulder; Z71.89 Other specified counseling | CPT/HCPCS: 20610 ==

== ENCOUNTER 2024-06-17 12:27 | Emergency (ER) | payer OTHER, MEDICARE, SELFPAY ==
[2024-06-17] VITALS (7 sets, daily range): BP systolic 169–211; BP diastolic 98–112; PULSE 58–74; RESP 16–18; TEMP 36.7; O2SAT 92–98; BMI 31.1
--- NOTE | 2024-06-17 13:59 | CT_ITS ---
WS: [id number] CT ABDOMEN AND PELVIS WITH CONTRAST HISTORY: Left-sided flank pain. TECHNIQUE: Imaging performed of the abdomen and pelvis with IV contrast. Single phase imaging of the abdomen. Coronal and sagittal reformats are submitted. All CT scans at [facility] use at [facility] st one of these dose optimization techniques: automated exposure control; mA and/or kV adjustment per patient size (includes targeted exams where dose is matched to clinical indication); or iterative re construction. IV CONTRAST: Omnipaque 350; 100 mL IV. Oral contrast: No DLP: 843.33 mGy.cm COMPARISON: 02/12/2020 Lower thorax: Lung bases are clear. Heart is normal size. No hiatal hernia. Liver/biliary system: Normal size with no intrahepatic dilatation. Gallbladder: Prior cholecystectomy. Pancreas: Normal size pancreas and pancreatic duct. No adjacent inflammation. Spleen: Normal size spleen. No mass or infarct. Adrenal glands: Normal. Right kidney: No obstruction. Too small to characterize cortical hypodensities. Left kidney: No obstruction. Several cysts are present with the largest in the pelvis measuring 3.6 c m. Aorta: Atherosclerosis aorta. 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 Calcification in the celiac axis and SMA. Lymphadenopathy: None. Free fluid: None. GI tract: No GI tract obstruction. Prior appendectomy. No colitis. Mild sigmoid diverticular disease without acute diverticulitis. Abdominal wall: Fat containing umbilical hernia. Pelvis: Urinary bladder is well distended. Bilateral inguinal canals are patent containing fat. The u rinary bladder extends into the patent RIGHT inguinal canal as seen on the prior study. The extent of the bladder herniation is slightly progressed. No stones are identified within the bladder herniatio n. Bones: L5 anterolisthesis by 9 mm. Bilateral L5 pars defects. Acute nondisplaced LEFT 10th and 11th rib fractures. There are additional left-sided rib fractures wh ich are healed. CT/CT abdomen pelvis w con* [id number] IMPRESSION: 1. No renal obstruction or calcifications. 2. Mild sigmoid diverticulosis without acute diverticulitis. 3. Acute nondisplaced LEFT 10th and 11th rib fractures. 4. No free fluid or adenopathy. 5. Bilateral inguinal canals containing fat. The RIGHT inguinal canal also con tains the urinary bladder. Similar to the prior study from 2019.
--- NOTE | 2024-06-17 14:00 | W.ED.FALL ---
HPI - Fall General: Chief Complaint: Fall Stated Complaint: fell Sunday down flt stairs Time Seen by Provider: 06/17/24 13:48 Source: patient Mode of arrival: ambulatory Limitations: no limitations History of Present Illness: 74-year-old male states that he had fell down a few stairs on Sunday states he had hit his left flank on a stair he states been having increasing pain in his kidney area. He denies any other injuries from the fall denies hitting his head denies any neck pain he rates his flank pain a 7 out of 10 denies any blood in his urine. He is not on any blood thinners. Associated symptoms-after fall: Denies abdominal pain, chest pain, headache(s) or neck pain Related Data Home Medications Medication Instructions Recorded Confirmed Vitamin C 1 tab PO BID 02/12/20 06/17/24 magnesium 250 mg tablet 250 mg PO DAILY 02/12/20 06/17/24 potassium gluconate 595 mg (99 mg) 595 mg PO DAILY 02/12/20 06/17/24 tablet rivaroxaban 20 mg tablet (Xarelto) 20 mg PO DAILY 02/12/20 06/17/24 B-Complex 1 tab PO DAILY 02/08/23 06/17/24 cholecalciferol (vitamin D3) 50 50 mcg PO DAILY 02/08/23 06/17/24 mcg (2,000 unit) capsule losartan 100 mg tablet 100 mg PO DAILY 02/08/23 06/17/24 sildenafil 100 mg tablet See Rx Instructions .Route 02/08/23 06/17/24 .COMPLEX PRN erectile disfunction sotalol 80 mg tablet 40 mg PO BID 02/08/23 06/17/24 vit k2 1 tab PO DAILY 02/08/23 06/17/24 Allergies Allergy/AdvReac Type Severity Reaction Status Date / Time No Known Allergies Allergy Verified 04/18/24 10:59 Review of Systems Const: Denies: fever(s), chills, body aches or change in appetite ENMT: Denies: throat pain or dental pain Card: Denies: chest pain Resp: Denies: dyspnea GI: Denies: abdominal pain, nausea, vomiting or diarrhea : Reports: flank pain; Denies: dysuria Musc: Denies: neck pain or back pain Skin/Breast: Denies: rash Neuro: Denies: headache(s) PFSH ED PFSH: Medical History (Updated 06/17/24 @ 16:29 by Sharyn Serrano MD) Coronary artery disease Hypertension Surgical History H/O cardiac catheterization S/P cholecystectomy S/P appendectomy Social History Smoking and tobacco/nicotine status: former use of tobacco/nicotine Physical Exam Const: COMMON NORMALS: no acute distress, patient oriented x3 and healthy appearing HENMT: COMMON NORMALS: normocephalic and atraumatic HEAD & SCALP: normocephalic and atraumatic Eye: COMMON NORMALS: Equal, round and reactive pupils present and EOMs intact bilaterally PUPIL: Yes Equal, round and reactive pupils present Neck/C-Spine: COMMON NORMALS: full ROM and supple Chest: COMMONS NORMALS: normal inspection of the chest and normal palpation of entire chest wall Resp: COMMON NORMALS: normal respiratory effort, No retractions, No use of accessory muscles and clear to auscultation bilaterally AUSCULTATION: clear to auscultation bilaterally Cardio: COMMON NORMALS: regular rate, regular rhythm and No murmurs present (Cardio) RATE: regular rate RHYTHM: regular rhythm GI: COMMON NORMALS: Normal to inspection, nondistended, normoactive bowel sounds present, Soft to palpation and no masses PALPATION: Yes Soft to palpation OTHER: Tenderness along with contusion to left flank Extremity: COMMON NORMALS: normal to inspection and full ROM Neuro: COMMON NORMALS: patient oriented x3, moves all extremities and no focal motor deficits Psych: COMMON NORMALS: mental status grossly normal, Normal thought process present and cooperative THOUGHT PROCESS: Normal thought process present Skin: COMMON NORMALS: no rashes or lesions noted and no wounds GENERAL SKIN EXAM: no rashes or lesions noted Course Vital Signs: Vital signs: Vital Signs Temperature 98.1 F 06/17/24 12:31 Pulse Rate 61 06/17/24 16:00 Respiratory Rate 16 06/17/24 15:30 Blood Pressure 211/112 06/17/24 15:30 Pulse Oximetry 94 06/17/24 16:00 Oxygen Delivery Me thod Room Air 06/17/24 16:00 MDM - Fall Medical Decision Making Patient presents for left flank pain CT does show a 10-11 rib fracture likely causes pain kidney and intra-abdominal contents are all normal he is feeling improved. Has incentive spirometer at home informing needs to use it no signs any other major injuries he stable for discharge return if worsening Medical Records I reviewed the patient's medical records. Lab Data I reviewed the patient's lab results. 06/17/24 14:00 06/17/24 14:00 Radiology Impressions Abdomen/Pelvis CT 06/17/24 13:59 IMPRESSION: 1. No renal obstruction or calcifications. 2. Mild sigmoid diverticulosis without acute diverticulitis. 3. Acute nondisplaced LEFT 10th and 11th rib fractures. 4. No free fluid or adenopathy. 5. Bilateral inguinal canals containing fat. The RIGHT inguinal canal also contains the urinary bladder. Similar to the prior study from 2019. Laboratory Results WBC 7.80 10^3/uL (3.29-11.43) 06/17/24 14:00 RBC 5.64 10^6/uL (3.85-5.65) 06/17/24 14:00 Hgb 17.50 g/dL (11.27-16.99) H 06/17/24 14:00 Hct 52.1 % (37-53) 06/17/24 14:00 MCV 92.4 fl (82-101) 06/17/24 14:00 MCH 31.0 pg (27-33) 06/17/24 14:00 MCHC 33.6 g/dL (30-55) 06/17/24 14:00 RDW 13.1 % (12.1-15.1) 06/17/24 14:00 Plt Count 249 10^3/cmm (157-399) 06/17/24 14:00 MPV 9.7 fL (7.4-10.4) 06/17/24 14:00 Neut % (Auto) 62.8 % 06/17/24 14:00 Lymph % (Auto) 24.1 % 06/17/24 14:00 [place]utter % (Auto) 7.8 % 06/17/24 14:00 Eos % (Auto) 3.7 % 06/17/24 14:00 Baso % (Auto) 1.2 % 06/17/24 14:00 Neut # (Auto) 4.90 10^3/uL (1.8-7.7) 06/17/24 14:00 Lymph # (Auto) 1.9 10^3/uL (0.8-4.8) 06/17/24 14:00 [place]utter # (Auto) 0.6 10^3/uL (0.2-0.9) 06/17/24 14:00 Eos # (Auto) 0.3 10^3/uL (0.0-0.8) 06/17/24 14:00 Baso # (Auto) 0.1 10^3/uL (0.0-0.1) 06/17/24 14:00 Nucleated RBC % (auto) 0 % 06/17/24 14:00 Nucleated RBCs # 0.0 /100WBC 06/17/24 14:00 Sodium 138 mmol/L (136-145) 06/17/24 14:00 Potassium 4.4 mmol/L (3.5-5.1) 06/17/24 14:00 Chloride 105 mmol/L (98-107) 06/17/24 14:00 Carbon Dioxide 20 mmol/L (22-29) L 06/17/24 14:00 Anion Gap 17.4 (5-19) 06/17/24 14:00 BUN 18 mg/dL (8-23) 06/17/24 14:00 Creatinine 0.8 mg/dL (0.7-1.2) 06/17/24 14:00 GFR Calculation Not Reportable 06/17/24 14:00 Glucose 101 mg/dL (65-115) 06/17/24 14:00 Calculated Osmolality 288 mOsm/kg (285-295) 06/17/24 14:00 Calcium 8.6 mg/dL (8.5-10.5) 06/17/24 14:00 Total Bilirubin 0.6 mg/dL (0.15-1.2) 06/17/24 14:00 AST 28 U/L (0-40) 06/17/24 14:00 ALT 18 U/L (0-41) 06/17/24 14:00 Alkaline Phosphatase 78 U/L (40-130) 06/17/24 14:00 Total Protein 6.5 g/dL (6.6-8.7) L 06/17/24 14:00 Albumin 4.3 g/dL (3.5-5.2) 06/17/24 14:00 Globulin 2.2 g/dL (1.3-4.6) 06/17/24 14:00 All radiology interpretation(s) finalized by discharge Discharge Plan Discharge Patient Disposition: Home Clinical Impression: Fall Qualifiers: Encounter type: initial encounter Qualified Code(s): W19.XXXA - Unspecified fall, initial encounter Left rib fracture Qualifiers: Encounter type: initial encounter Rib fracture type: multiple ribs Fracture type: closed Qualified Code(s): S22.42XA - Multiple fractures of ribs, left side, initial encounter for closed fracture Condition: Stable Prescriptions: No Action sildenafil 100 mg tablet See Rx Instructions .ROUTE .COMPLEX PRN (Reason: erectile disfunction ) Rx Instructions: 100 mg orally as needed ;take once every other day as needed cholecalciferol (vitamin D3) 50 mcg (2,000 unit) capsule 50 mcg PO DAILY vit k2 1 tab PO DAILY B-Complex 1 tab PO DAILY sotalol 80 mg tablet 40 mg PO BID losartan 100 mg tablet 100 mg PO DAILY magnesium 250 mg Tablet 250 mg PO DAILY potassium gluconate 595 mg (99 mg) Tablet 595 mg PO DAILY Xarelto 20 mg tablet 20 mg PO DAILY Vitamin C 1 tab PO BID Discharge Orders: Discharge ED (Routine); Ordered 06/17/24 Ordered By: Sharyn Serrano Referrals: Emi Mills MD [Primary Care Provider] - 4-7 days Discharge Diet: Advance as tolerated Discharge Activity: Resume usual activity Patient Instructions: Rib Fracture (ED) Coding Level of Care Code ED Fraud Prevention Analyst for Abhinav Marsh
--- NOTE | 2024-06-17 14:08 | PC.PHAR ---
Patient [facility] for [facility]
[2024-06-17] MEDS: ondansetron 2 mg/ML SDV 2 mL 4 MG IVP (14:10)
[2024-06-17] MEDS: morphine 4 mg/mL SDV 1 mL IVP (14:11)
[2024-06-17 14:19] LABS: Basophils # 0.1 10^3/uL (0.0-0.1); Basophils % 1.2 %; Eosinophils # 0.3 10^3/uL (0.0-0.8); Eosinophils % 3.7 %; Hematocrit 52.1 % (37-53); Lymphocytes # 1.9 10^3/uL (0.8-4.8); Lymphocytes % 24.1 %; Mean Corpuscular HGB Conc 33.6 g/dL (30-55); Mean Corpuscular Volume 92.4 fl (82-101); Mean Platelet Volume 9.7 fL (7.4-10.4); Monocytes # 0.6 10^3/uL (0.2-0.9); Monocytes % 7.8 %; Neutrophils % 62.8 %; Nucleated Red Blood Cells % 0 %; Platelet Count 249 10^3/cmm (157-399); Red Blood Count 5.64 10^6/uL (3.85-5.65); Red Cell Distribution Width 13.1 % (12.1-15.1)
[2024-06-17 14:35] LABS: Alanine Aminotransferase 18 U/L (0-41); Albumin Level 4.3 g/dL (3.5-5.2); Alkaline Phosphatase 78 U/L (40-130); Blood Urea Nitrogen 18 mg/dL (8-23); Calcium 8.6 mg/dL (8.5-10.5); Carbon Dioxide 20 mmol/L (22-29); Chloride 105 mmol/L (98-107); Creatinine Clr Calc Pharmacy 91.0018; Globulin 2.2 g/dL (1.3-4.6); Glucose 101 mg/dL (65-115); Osmolality Calculated 288 mOsm/kg (285-295); Sodium 138 mmol/L (136-145); Total Bilirubin 0.6 mg/dL (0.15-1.2); Total Protein 6.5 g/dL (6.6-8.7)
[2024-06-17 14:36] LABS: Anion Gap 17.4 (5-19); Aspartate Amino Transferase 28 U/L (0-40); Potassium 4.4 mmol/L (3.5-5.1)
[2024-06-17] MEDS: iohexol 350 mg/mL 500 mL Btl (per mL) IV (15:16)
--- NOTE | 2024-06-17 15:45 | PC.NURSE ---
pt BP 211/112. pt in pain, states morphine didn't really help, pt states he does not want any more pain meds. dr. Serrano notified and aware.
--- NOTE | 2024-06-17 16:12 | XRR_ITS ---
PROCEDURE INFORMATION: Exam: XR Chest Exam date and time: 06/17/2024 4:16 PM Age: 74 years old Clinical indication: Injury or trauma; Fall; Blunt trauma (contusions or hematomas) TECHNIQUE: Imaging protocol: Radiologic exam of the chest. Views: 1 view. COMPARISON: CR XR ribs LT mn 3V w CXR1V [id number] 07/10/2023 10:01 PM FINDINGS: Lungs: Unremarkable. No consolidation. Pleural spaces: Unremarkable. No pleural effusion. No pneumothorax. Heart/Mediastinum: Unremarkable. No cardiomegaly. Vasculature: Tortuous thoracic aorta with atherosclerotic calcifications. Bones/joints: Unremarkable. XR/XR chest 1V portable [id number] IMPRESSION: No acute findings.
== END 2024-06-17 16:42 | disposition home or self-care (01) ==
PROVIDERS: Emergency Provider Emergency Medicine; PCP Family Medicine
DX: S22.42XA Multiple fractures of ribs, left side, initial encounter for closed fracture (principal); W10.9XXA Fall (on) (from) unspecified stairs and steps, initial encounter
CPT/HCPCS: 71045; 74177; 80053; 85025; 96374; 96375; 99285; J2270; J2405

== ENCOUNTER → 2024-07-31 11:24 | Outpatient (BNVA) | payer OTHER, SELFPAY | PROVIDERS: PCP Family Medicine; Visit Provider Nurse Practitioner Family | DX: I48.91 Unspecified atrial fibrillation (principal); I25.10 Atherosclerotic heart disease of native coronary artery without angina pectoris; I10 Essential (primary) hypertension; R00.1 Bradycardia, unspecified; Z87.891 Personal history of nicotine dependence | CPT/HCPCS: 93005; 99214 ==

== ENCOUNTER → 2024-08-01 10:20 | Outpatient (BNVA) | payer OTHER, SELFPAY | PROVIDERS: PCP Family Medicine; Visit Provider Specialist | DX: M75.102 Unspecified rotator cuff tear or rupture of left shoulder, not specified as traumatic; M12.812 Other specific arthropathies, not elsewhere classified, left shoulder; Z71.89 Other specified counseling | CPT/HCPCS: 20610; J1100; J2795; J3301 ==

== ENCOUNTER → 2024-11-07 09:36 | Outpatient (BNVA) | payer OTHER, SELFPAY | PROVIDERS: PCP Family Medicine; Visit Provider Specialist | DX: M75.102 Unspecified rotator cuff tear or rupture of left shoulder, not specified as traumatic (principal); M12.812 Other specific arthropathies, not elsewhere classified, left shoulder; Z71.89 Other specified counseling | CPT/HCPCS: 20610; J1100; J2795; J3301 ==

== ENCOUNTER 2024-11-10 12:27 | Emergency (ER) | payer OTHER, MEDICARE, SELFPAY ==
[2024-11-10 12:32] VITALS: BP 162/80; PULSE 57; TEMP 36.4; O2SAT 98; BMI 30.4
[2024-11-10 14:30] LABS: Basophils % 0.5 %; Eosinophils # 0.1 10^3/uL (0.0-0.8); Eosinophils % 0.8 %; Hematocrit 52.6 % (37-53); Lymphocytes # 1.9 10^3/uL (0.8-4.8); Lymphocytes % 21.8 %; Mean Corpuscular HGB Conc 33.3 g/dL (30-55); Mean Corpuscular Hemoglobin 30.8 pg (27-33); Mean Corpuscular Volume 92.6 fl (82-101); Mean Platelet Volume 9.9 fL (7.4-10.4); Monocytes # 0.6 10^3/uL (0.2-0.9); Monocytes % 6.7 %; Neutrophils # 6.12 10^3/uL (1.8-7.7); Neutrophils % 69.9 %; Nucleated Red Blood Cells % 0 %; Platelet Count 255 10^3/cmm (157-399); Red Blood Count 5.68 10^6/uL (3.85-5.65); Red Cell Distribution Width 13.9 % (12.1-15.1); White Blood Count 8.76 10^3/uL (3.29-11.43)
[2024-11-10 14:48] LABS: Alanine Aminotransferase 22 U/L (0-41); Albumin Level 4.2 g/dL (3.5-5.2); Alkaline Phosphatase 84 U/L (40-130); Anion Gap 14.2 (5-19); Aspartate Amino Transferase 20 U/L (0-40); Blood Urea Nitrogen 17 mg/dL (8-23); Calcium 9.6 mg/dL (8.5-10.5); Carbon Dioxide 27 mmol/L (22-29); Chloride 103 mmol/L (98-107); Creatinine Clr Calc Pharmacy 71.9573; Glucose 117 mg/dL (65-115); Osmolality Calculated 293 mOsm/kg (285-295); Potassium 4.2 mmol/L (3.5-5.1); Sodium 140 mmol/L (136-145); Total Bilirubin 0.7 mg/dL (0.15-1.2); Total Protein 7.2 g/dL (6.6-8.7)
--- NOTE | 2024-11-10 15:34 | W.ED.MALEGU ---
HPI - Male Genitourinary General: Chief complaint: Urogenital-Male Stated complaint: ([facility]) diarrhea, pain in groin Time Seen by Provider: 11/10/24 15:24 History of Present Illness: 73-year-old male presents to the emergency room with complaints of swelling and bulge in the right groin. He had a hernia in the past it is causing more discomfort. No vomiting. He has had some loose stools has been going on for some time denies hematochezia. Associated symptoms: Deny dysuria Related Data Home Medications ?Medication ?Instructions ?Recorded ?Confirmed Vitamin C 1 tab PO BID 02/12/20 11/10/24 magnesium 250 mg tablet 250 mg PO DAILY 02/12/20 11/10/24 potassium gluconate 595 mg (99 mg) 595 mg PO DAILY 02/12/20 11/10/24 tablet rivaroxaban 20 mg tablet (Xarelto) 20 mg PO DAILY 02/12/20 11/10/24 B-Complex 1 tab PO DAILY 02/08/23 11/10/24 cholecalciferol (vitamin D3) 50 50 mcg PO DAILY 02/08/23 11/10/24 mcg (2,000 unit) capsule losartan 100 mg tablet 100 mg PO DAILY 02/08/23 11/10/24 sildenafil 100 mg tablet See Rx Instructions .Route 02/08/23 11/10/24 .COMPLEX PRN erectile disfunction sotalol 80 mg tablet 40 mg PO BID 02/08/23 11/10/24 vit k2 1 tab PO DAILY 02/08/23 11/10/24 Allergies Allergy/AdvReac Type Severity Reaction Status Date / Time No Known Allergies Allergy Verified 11/10/24 12:35 Review of Systems Const: Denies: fever(s) or chills Card: Denies: chest pain Resp: Denies: dyspnea GI: Denies: abdominal pain : Denies: dysuria, urinary frequency or urinary urgency Musc: Denies: neck pain or back pain Skin/Breast: Denies: rash PFSH ED PFSH: Medical History (Updated 11/10/24 @ 17:51 by Claudy Bowman DO) Coronary artery disease Hypertension Surgical History H/O cardiac catheterization S/P cholecystectomy S/P appendectomy Social History Smoking and tobacco/nicotine status: former use of tobacco/nicotine Physical Exam Const: COMMON NORMALS: no acute distress GENERAL APPEARANCE: cooperative and comfortable ORIENTATION/CONSCIOUSNESS: Yes awake, Yes oriented to person, Yes oriented to place and Yes oriented to time HENMT: COMMON NORMALS: normocephalic, atraumatic and hearing grossly normal bilaterally HEAD & SCALP: normocephalic and atraumatic Resp: COMMON NORMALS: normal respiratory effort, No retractions, No use of accessory muscles and clear to auscultation bilaterally AUSCULTATION: clear to auscultation bilaterally Cardio: COMMON NORMALS: regular rate, regular rhythm and No murmurs present (Cardio) RATE: regular rate RHYTHM: regular rhythm GI: COMMON NORMALS: Soft to palpation and No hepatosplenomegaly present AUSCULTATION: Yes normoactive bowel sounds PALPATION: Yes Soft to palpation, No Tenderness to palpation present (GI), No Guarding due to palpation present (GI) and Yes No hepatosplenomegaly present OTHER: Palpable right inguinal hernia is reducible there is still some tissue in the inguinal canal but significantly improved. Extremity: COMMON NORMALS: normal to inspection, capillary refill normal, no clubbing, cyanosis or edema, no calf tenderness and no pedal edema Neuro: SENSORIUM/ORIENTATION: Yes oriented to person, Yes oriented to place and Yes oriented to time Skin: COMMON NORMALS: no rashes or lesions noted GENERAL SKIN EXAM: no rashes or lesions noted Course Vital Signs: Vital signs: Vital Signs Temperature 97.6 F 11/10/24 12:32 Pulse Rate 59 L 11/10/24 18:06 Respiratory Rate 18 11/10/24 17:51 Blood Pressure 161/93 11/10/24 18:06 Pulse Oximetry 98 11/10/24 18:06 Oxygen Delivery Me thod Room Air 11/10/24 17:51 MDM - Male Medical Decision Making CT shows very unusual herniation of the bladder like an extremely large diverticulum that extends deep into the inguinal canal defect. He is not strangulated no there is no bowel as the defect is kidney function is good is not causing obstruction will discharge home refer to urology Medical Records I reviewed the patient's medical records. Lab Data I reviewed the patient's lab results. 11/10/24 13:50 11/10/24 13:50 Radiology Impressions Abdomen/Pelvis CT 11/10/24 16:16 IMPRESSION: 1. Herniation of the urinary bladder into the right inguinal canal, the hernia also contains fat. There has been no significant interval change. Right hydrocele. 2. Interval increase in size of the 3.4 cm infrarenal abdominal aortic aneurysm which previously measured 3.1 cm. COMMENTS: Consistent with the [employer]'s Incidental Findings Committee white paper (J Am Xavier Radiol 2018): Any incidental renal lesion less than 1 cm or classified as too small to characterize, or any incidental cystic renal lesion characterized as simple-appearing, is likely benign. No follow-up imaging is recommended for these lesions per consensus recommendations based on imaging criteria. Laboratory Results WBC 8.76 10^3/uL (3.29-11.43) 11/10/24 13:50 RBC 5.68 10^6/uL (3.85-5.65) H 11/10/24 13:50 Hgb 17.50 g/dL (11.27-16.99) H 11/10/24 13:50 Hct 52.6 % (37-53) 11/10/24 13:50 MCV 92.6 fl (82-101) 11/10/24 13:50 MCH 30.8 pg (27-33) 11/10/24 13:50 MCHC 33.3 g/dL (30-55) 11/10/24 13:50 RDW 13.9 % (12.1-15.1) 11/10/24 13:50 Plt Count 255 10^3/cmm (157-399) 11/10/24 13:50 MPV 9.9 fL (7.4-10.4) 11/10/24 13:50 Neut % (Auto) 69.9 % 11/10/24 13:50 Lymph % (Auto) 21.8 % 11/10/24 13:50 Stewart % (Auto) 6.7 % 11/10/24 13:50 Eos % (Auto) 0.8 % 11/10/24 13:50 Baso % (Auto) 0.5 % 11/10/24 13:50 Neut # (Auto) 6.12 10^3/uL (1.8-7.7) 11/10/24 13:50 Lymph # (Auto) 1.9 10^3/uL (0.8-4.8) 11/10/24 13:50 Stewart # (Auto) 0.6 10^3/uL (0.2-0.9) 11/10/24 13:50 Eos # (Auto) 0.1 10^3/uL (0.0-0.8) 11/10/24 13:50 Baso # (Auto) 0.0 10^3/uL (0.0-0.1) 11/10/24 13:50 Nucleated RBC % (auto) 0 % 11/10/24 13:50 Nucleated RBCs # 0.0 /100WBC 11/10/24 13:50 Sodium 140 mmol/L (136-145) 11/10/24 13:50 Potassium 4.2 mmol/L (3.5-5.1) 11/10/24 13:50 Chloride 103 mmol/L (98-107) 11/10/24 13:50 Carbon Dioxide 27 mmol/L (22-29) 11/10/24 13:50 Anion Gap 14.2 (5-19) 11/10/24 13:50 BUN 17 mg/dL (8-23) 11/10/24 13:50 Creatinine 1.0 mg/dL (0.7-1.2) 11/10/24 13:50 GFR Calculation Not Reportable 11/10/24 13:50 Glucose 117 mg/dL (65-115) H 11/10/24 13:50 Calculated Osmolality 293 mOsm/kg (285-295) 11/10/24 13:50 Lactic Acid 1.3 mmol/L (0.5-2.2) 11/10/24 13:50 Calcium 9.6 mg/dL (8.5-10.5) 11/10/24 13:50 Total Bilirubin 0.7 mg/dL (0.15-1.2) 11/10/24 13:50 AST 20 U/L (0-40) 11/10/24 13:50 ALT 22 U/L (0-41) 11/10/24 13:50 Alkaline Phosphatase 84 U/L (40-130) 11/10/24 13:50 Total Protein 7.2 g/dL (6.6-8.7) 11/10/24 13:50 Albumin 4.2 g/dL (3.5-5.2) 11/10/24 13:50 Globulin 3.0 g/dL (1.3-4.6) 11/10/24 13:50 Urine Color Yellow (Yellow) 11/10/24 13:53 Urine Appearance Clear (CLEAR) 11/10/24 13:53 Urine pH 5.5 (5-7) 11/10/24 13:53 Ur Specific [place] 1.016 (1.005-1.030) 11/10/24 13:53 Urine Protein Negative (Negative) 11/10/24 13:53 Urine Glucose (UA) Negative (Normal) 11/10/24 13:53 Urine Ketones Negative (Negative) 11/10/24 13:53 Urine Blood Negative (Negative) 11/10/24 13:53 Urine Nitrate Negative (Negative) 11/10/24 13:53 Urine Bilirubin Negative (Negative) 11/10/24 13:53 Urine Urobilinogen 0.2 mg/dL (Negative) 11/10/24 13:53 Ur Leukocyte Esterase Negative (Negative) 11/10/24 13:53 Amorphous Sediment Not Reportable 11/10/24 13:53 All radiology interpretation(s) finalized by discharge Discharge Plan Discharge Patient Disposition: Home Clinical Impression: Inguinal hernia, Hernia of urinary bladder Condition: Stable Prescriptions: No Action sildenafil 100 mg tablet See Rx Instructions .ROUTE .COMPLEX PRN (Reason: erectile disfunction ) Rx Instructions: 100 mg orally as needed ;take once every other day as needed cholecalciferol (vitamin D3) 50 mcg (2,000 unit) capsule 50 mcg PO DAILY vit k2 1 tab PO DAILY B-Complex 1 tab PO DAILY sotalol 80 mg tablet 40 mg PO BID losartan 100 mg tablet 100 mg PO DAILY magnesium 250 mg Tablet 250 mg PO DAILY potassium gluconate 595 mg (99 mg) Tablet 595 mg PO DAILY Xarelto 20 mg tablet 20 mg PO DAILY Vitamin C 1 tab PO BID Discharge Orders: Discharge ED (Routine); Ordered 11/10/24 Ordered By: Claudy Bowman Referrals: Emi Mills MD [Primary Care Provider] - Discharge Diet: Usual diet Discharge Activity: Resume usual activity Patient Instructions: Opioid Safety, Pain Management Activity Restrictions/Additional Instructions: Thank you for choosing [facility] for your healthcare needs today. It is very important that you follow up as instructed or that you return to the Emergency Department should you have concerns or if your condition changes or worsens in any way. You are seen in the emergency room with complaints of a herniation. This was reducible at the bedside CT does show there is a small portion of your bladder that is extending into the hernia. Recommend frequent urination to prevent overfilling of your bladder. Will refer you to urology. This likely will be need to be seen by urology in conjunction with general surgery. Print Language: Tamazight Coding Level of Care Code ED Vest Maker for Abhinav Marsh
[2024-11-10 15:52] VITALS: BP 158/88; PULSE 55; RESP 16; O2SAT 95
--- NOTE | 2024-11-10 16:14 | PC.PHAR ---
[facility]
--- NOTE | 2024-11-10 16:16 | CTR_ITS ---
PROCEDURE INFORMATION: Exam: CT Abdomen And Pelvis Without Contrast Exam date and time: 11/10/2024 4:37 PM Age: 74 years old Clinical indication: Abdominal pain; Generalized; Prior surgery; Surgery date: 6+ months; Surgery type: Gb, appy TECHNIQUE: Imaging protocol: Computed tomography of the abdomen and pelvis without contrast. Radiation optimization: All CT scans at this facility use at least one of these dose optimization techniques: automated exposure control; mA and/or kV adjustment per patient size (includes targeted exams where dose is matched to clinical indication); or iterative reconstruction. COMPARISON: CT abdomen pelvis w con* [id number] 06/17/2024 3:13 PM RADIATION DOSE METRICS: Total DLP (mGy-cm): 789.23 FINDINGS: Limitations: Examination is limited for the evaluation of vascular structures due to the lack of intravenous contrast. There is a small fat containing umbilical hernia. Lungs: Lung bases are unremarkable. Liver: The liver is unremarkable. Gallbladder and biliary ducts: Post cholecystectomy. Pancreas: Pancreas is unremarkable. No ductal dilation or peripancreatic inflammation. Spleen: The spleen is unremarkable. Adrenal glands: Adrenal glands are unremarkable. Kidneys and ureters: No hydronephrosis or nephrolithiasis. Bilateral simple renal cysts are present, as well as other subcentimeter hypodensities which are too small to characterize. Stomach and bowel: Stomach is not distended. Small hiatal hernia. Small and large bowel are normal in caliber without evidence of obstruction. Diverticulosis without evidence of diverticulitis. Appendix: Appendix is not visualized. Intraperitoneal space: No free intraperitoneal air. No fluid collection. Vasculature: 3.4 cm infrarenal abdominal aortic aneurysm. There is atherosclerotic disease. Calcifications of the origins of the celiac, SMA and renal arteries. Lymph nodes: No pathologically enlarged lymph nodes (by short axis size criteria). Urinary bladder: Bladder is distended with no focal wall thickening, the bladder herniates into the right inguinal canal in addition to the herniated fat. Reproductive: Visualized portions of the male reproductive tract are unremarkable for patient's age, though routine CT is limited in this regard. There are calcifications within the prostate. Bilateral fat containing inguinal hernia, the right hernia contains part of the bladder which extends into the scrotal sac. There is a right hydrocele. Bones/joints: Old healed lower lateral left rib fractures. There is degenerative disease of the spine. Grade 1 anterolisthesis of L5 on S1. Soft tissues: Unremarkable. CT/CT abdomen pelvis wo con [id number] IMPRESSION: 1. Herniation of the urinary bladder into the right inguinal canal, the hernia also contains fat. There has been no significant interval change. Right hydrocele. 2. Interval increase in size of the 3.4 cm infrarenal abdominal aortic aneurysm which previously measured 3.1 cm. COMMENTS: Consistent with the [employer]'s Incidental Findings Committee white paper (J Am Xavier Radiol 2018): Any incidental renal lesion less than 1 cm or classified as too small to characterize, or any incidental cystic renal lesion characterized as simple-appearing, is likely benign. No follow-up imaging is recommended for these lesions per consensus recommendations based on imaging criteria.
[2024-11-10 16:26] LABS: Add Urine Microscopic? NO
[2024-11-10 16:38] LABS: Bilirubin Urine Negative (Negative); Blood Urine Negative (Negative); Glucose Urine UA Negative (Normal); Ketones Urine Negative (Negative); Leukocyte Esterase Urine Negative (Negative); Nitrate Urine Negative (Negative); Protein Urine Negative (Negative); Specific Gravity, Urine 1.016 (1.005-1.030); Urine Appearance Clear (CLEAR); Urine Color Yellow (Yellow); Urobilinogen Urine 0.2 mg/dL (Negative); pH Urine 5.5 (5-7)
[2024-11-10 16:41] LABS: Lactic Sepsis W/Reflex 1.3 mmol/L (0.5-2.2)
[2024-11-10 16:52] LABS: Add Urine Culture? No; Charge for UA Resulting for Rev
[2024-11-10 17:51] VITALS: BP 161/93; PULSE 58; RESP 18; O2SAT 96
[2024-11-10 18:06] VITALS: BP 161/93; PULSE 59; O2SAT 98
--- NOTE | 2024-11-12 07:28 | DCPLANNER ---
[facility] [place]
== END 2024-11-10 18:10 | disposition home or self-care (01) ==
PROVIDERS: Emergency Medicine; Emergency Provider Family Medicine; PCP Family Medicine
DX: K40.90 Unilateral inguinal hernia, without obstruction or gangrene, not specified as recurrent (principal); N32.89 Other specified disorders of bladder; I25.10 Atherosclerotic heart disease of native coronary artery without angina pectoris; I10 Essential (primary) hypertension; Z87.891 Personal history of nicotine dependence
CPT/HCPCS: 36415; 74176; 80053; 81003; 83605; 85025; 99284

== ENCOUNTER → 2024-11-19 07:54 | Outpatient (BNVA) | payer OTHER, SELFPAY | PROVIDERS: PCP Family Medicine; Visit Provider Surgery | DX: K46.9 Unspecified abdominal hernia without obstruction or gangrene (principal) | CPT/HCPCS: 99202 ==

== ENCOUNTER → 2025-02-06 08:13 | Outpatient (BNVA) | payer OTHER, SELFPAY | PROVIDERS: PCP Family Medicine; Visit Provider Specialist | DX: M75.102 Unspecified rotator cuff tear or rupture of left shoulder, not specified as traumatic (principal); M12.812 Other specific arthropathies, not elsewhere classified, left shoulder | CPT/HCPCS: 20610; J1100; J2795; J3301; J9999 ==

== ENCOUNTER → 2025-05-11 12:56 | Outpatient (BNVA) | payer OTHER, SELFPAY | PROVIDERS: PCP Family Medicine; Visit Provider Internal Medicine | DX: I25.10 Atherosclerotic heart disease of native coronary artery without angina pectoris (principal); I10 Essential (primary) hypertension; I48.91 Unspecified atrial fibrillation; Z79.01 Long term (current) use of anticoagulants; Z87.891 Personal history of nicotine dependence | CPT/HCPCS: 99214 ==

== ENCOUNTER → 2025-05-15 08:01 | Outpatient (BNVA) | payer OTHER, SELFPAY | PROVIDERS: PCP Family Medicine; Visit Provider Specialist | DX: M75.102 Unspecified rotator cuff tear or rupture of left shoulder, not specified as traumatic (principal); M12.812 Other specific arthropathies, not elsewhere classified, left shoulder | CPT/HCPCS: 20610; J1100; J2795; J3301; J9999 ==

== ENCOUNTER 2025-05-19 08:52 | Outpatient (CLI) | payer OTHER, SELFPAY ==
--- NOTE | 2025-05-19 | ECG_ITS ---
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 Interpretive Statements Lung unchanged pre/post procedure; Intraprocedure shortess of breath; Symptoms resoled by discharge PROCEDURE: At the baseline, the EKG revealed atrial fibrillation with a controlled ventricular response rate of 74 bpm. Incomplete right bundle branch block pattern. Nonspecific T wave changes.. The baseline heart was 74 bpm with a blood pressue of 145/113 mm of Hg Lexiscan was infused over a period of 20 seconds. A total of 0.4 milligrams of Lexiscan was infused. The stress phase was continued for a total of 5 minutes. Heart rate at the end of the stress phase was 92 bpm with a blood pressure 127/86 mm of Hg. The EKG at the peak infusion revealed no significant changes. Sestamibi was injected 20 seconds after the Lexiscan infusion. Heart rate at the end of the recovery phase was 75 bpm with a blood pressure of 128/89 mm of Hg. CONCLUSION: 1. No significant EKG changes with the LexiScan infusion 2. No LexiScan induced chest pain or cardiac arrhythmia 3. Normal blood pressure and heart rate response 4. Sestamibi/sestamibi perfusion scan pending; see separate report. Electronically Signed On 05-23-2025 13:42:33 CDT by Monika Cote M.D. [email or web address]
--- NOTE | 2025-05-19 09:06 | NMCV_ITS ---
NM noah perf SPECT r/s* [id number] DiopRocael moreno Age: 75 Gender: M : 1950 Exam Date: 05/19/2025 09:48 Ordering Phys: Mk Doherty M.D ([email or web address]) Technologist: LUANNE Cox Exam Location: [facility] Indications: cp STRESS TEST Please [facility] IMAGE PROTOCOL Rest/Stress 1 Lexiscan Day Radiopharmaceutical Dose (mCi) Administration Site Administered by Rest: Tc-99m 10.6 IV Jada Leonard, ANATOMY PROFESSOR Sestamibi Stress:Tc-99m 32.5 IV Jada Loydgle, ANATOMY PROFESSOR Sestamibi Rest: 19-May-2025 60 Discovery 630 Stress: 19-May-2025 30 Discovery 630 0.4mg Lexiscan. Images obtained in supine and prone position. SPECT RESULTS Technical Quality: Good Raw Data Analysis: Normal Image Corrections: No attenuation or motion correction applied Summed Stress Score: 2 Summed Rest Score: 1 Summed Difference Score: 2 PERFUSION FINDINGS A small area of slightly decreased tracer uptake involving the mid inferolateral and apical lateral segments. Some reversibility was noted of the supine imaging. However compared with the prone imaging, no significant reversibility was noted FUNCTIONAL RESULTS (calculated via Gated SPECT) Stress Image LV EF (%): 71 Stress EDV (mL):82 TID: 1 Stress ESV (mL):24 FUNCTIONAL FINDINGS: Segmental wall motion analysis revealed no gross wall motion abnormalities. The transient ischemic dilatation ratio was 1.0 IMPRESSIONS 1. Myocardial perfusion imaging revealing a small area of slight reversibility involving the inferolateral and apical lateral region, suggesting ischemia in the distribution of the left circumflex artery. However because of the inconsistency, the reliability is questionable 2. Normal LV ejection fraction 71% 3. LV wall motion analysis revealing no gross wall motion abnormalities. 4. Normal LV volume No similar previous studies are available for comparison Dr Monika Cote MD LOCATED [facility]IN [facility] (Electronically Signed) Final Date: 19 May 2025 12:28 S
[2025-05-19 10:31] VITALS: BP 127/86; PULSE 76
== END 2025-05-19 08:53 | disposition home or self-care (01) ==
LOC: CDL 08:53
PROVIDERS: PCP Family Medicine; Visit Provider Internal Medicine
DX: R07.9 Chest pain, unspecified (principal); R93.1 Abnormal findings on diagnostic imaging of heart and coronary circulation
CPT/HCPCS: 36415; 78452; 93017; 96374; A9500; J2785

== ENCOUNTER → 2025-08-21 09:30 | Outpatient (BNVA) | payer OTHER, SELFPAY | PROVIDERS: PCP Family Medicine; Visit Provider Specialist | DX: M12.812 Other specific arthropathies, not elsewhere classified, left shoulder (principal); M75.102 Unspecified rotator cuff tear or rupture of left shoulder, not specified as traumatic | CPT/HCPCS: 20610; J1100; J2795; J3301; J9999 ==

== ENCOUNTER → 2025-09-01 08:54 | Outpatient (BNVA) | payer OTHER, SELFPAY | PROVIDERS: PCP Family Medicine; Visit Provider Nurse Practitioner Family | DX: L73.8 Other specified follicular disorders (principal); D18.01 Hemangioma of skin and subcutaneous tissue; W19.XXXA Unspecified fall, initial encounter; R23.3 Spontaneous ecchymoses; L57.8 Other skin changes due to chronic exposure to nonionizing radiation; L82.0 Inflamed seborrheic keratosis; Z78.9 Other specified health status; R20.8 Other disturbances of skin sensation; X58.XXXA Exposure to other specified factors, initial encounter | CPT/HCPCS: 17110; 99203 ==